=== PATIENT | male | born 1975 | race Caucasian/White ===

== ENCOUNTER 2018-03-10 05:23 | Emergency (ER) | payer MEDICAID ==
[~2018-03-10] VITALS: Ht 185.4 cm; Wt 70.5 kg
[~2018-03-10 05:23] MED LIST: ACET1TAB12 PO; CYCL-1 PO; CYCL-394 PO; IBUP-1572 PO; NO HOME MEDS; ONDA4TAB12 PO; VALA100027 PO
[2018-03-10 05:27] VITALS: BP 117/93
[2018-03-10 06:17] LABS: ALANINE AMINOTRANSFERASE 36 U/L (12-78); ALBUMIN 4.2 G/DL (3.4-5.0); ALBUMIN/GLOBULIN RATIO 1.1 (1.1-1.5); ALKALINE PHOSPHATASE 61 IU/L (46-116); ANION GAP 10 (8-16); ASPARTATE AMINO TRANSFERASE 31 U/L (10-37); BILIRUBIN,TOTAL 0.7 MG/DL (0.1-1.0); BLOOD UREA NITROGEN 20 MG/DL (7-18); BUN/CREATININE RATIO 24.4 (5.4-32.0); CALCIUM 9.6 MG/DL (8.5-10.1); CHLORIDE 100 MMOL/L (99-107); CREATININE 0.82 MG/DL (0.60-1.10); GLUCOSE 109 MG/DL (70-104); SODIUM 138 MMOL/L (135-145); TOTAL CARBON DIOXIDE 27.6 MMOL/L (24-32); TOTAL PROTEIN 7.9 G/DL (6.4-8.2); eGFR > 90 ML/MIN
[2018-03-10] MEDS ORDERED: ondansetron/PF 4mg/2ml inj IV ONE (06:20)
[2018-03-10] MEDS ORDERED: ketorolac trometh. 30mg/ml inj. IV ONE (06:20)
[2018-03-10 06:38] LABS: CLARITY,URINE CLEAR (Clear); COLOR,URINE YELLOW (Yellow); GLUCOSE, URINE NEGATIVE (Neg); KETONES,URINE NEGATIVE (Neg); LEUKOCYTE ESTERASE ,URINE NEGATIVE (Neg); NITRITES, URINE NEGATIVE (Neg); OCCULT BLOOD,URINE NEGATIVE (Neg); PROTEIN,URINE NEGATIVE (Neg); UROBILINOGEN,URINE 0.2 E.U/dL (0.2-1.0)
[2018-03-10 06:40] LABS: UA COLLECTION TYPE VOIDED
[2018-03-10 06:47] LABS: BASOPHILS # (AUTO) 0.1 X10'3 (0-0.2); BASOPHILS % (AUTO) 0.5 % (0-1); EOSINOPHILS # (AUTO) 0.2 X10'3 (0-0.9); EOSINOPHILS % (AUTO) 1.8 % (0-6); HEMATOCRIT 43.2 % (42.0-52.0); HEMOGLOBIN 14.5 g/dl (14.0-17.9); LYMPHOCYTES # (AUTO) 2.7 X10'3 (1.1-4.8); LYMPHOCYTES % (AUTO) 25.9 % (21-51); MEAN CORPUSCULAR HEMOGLOBIN 31.8 PG (27.0-31.0); MEAN CORPUSCULAR HGB CONC 33.5 % (33.0-36.5); MEAN CORPUSCULAR VOLUME 94.8 FL (78-98); MONOCYTES % (AUTO) 9.8 % (2-12); NEUTROPHILS # (AUTO) 6.6 X10'3 (1.8-7.7); PLATELET COUNT 449 X10'3 (140-440); RED BLOOD COUNT 4.56 X10'6 (4.70-6.10); RED CELL DISTRIBUTION WIDTH 13.4 % (11.5-14.5); WHITE BLOOD COUNT 10.6 X10'3 (4.5-11.0)
[2018-03-10] MEDS ORDERED: IBUP-1986 PO (06:55)
[2018-03-10] MEDS ORDERED: LIDOcaine 5% patch TP ONE (06:55)
[2018-03-10] MEDS ORDERED: orphenadrine citrate 60mg/2ml inj. IM ONE (06:55)
[2018-03-10] MEDS ORDERED: CYCL-1 PO (06:55)
[2018-03-10] MEDS ORDERED: LIDO700A32 TOP (06:55)
[2018-03-10] MEDS ORDERED: acetaminophen 325mg tablet PO ONE (06:55)
[2018-03-10] MEDS ORDERED: ACET-2615 PO (06:55)
== END 2018-03-10 07:19 | disposition home or self-care (01) ==
LOC: ER 05:24
DX: G89.29 Other chronic pain (principal); M54.5 Low back pain; N50.812 Left testicular pain; F12.90 Cannabis use, unspecified, uncomplicated; Z79.2 Long term (current) use of antibiotics; Z79.899 Other long term (current) drug therapy
CPT/HCPCS: 36415; 80053; 81003; 85025; 85610; 96374; 96375; 99283; J1885; J2405

== ENCOUNTER 2018-07-21 16:47 | Emergency (ER) | payer MEDICAID ==
[~2018-07-21] VITALS: Ht 185.4 cm; Wt 70.5 kg
[~2018-07-21 16:47] MED LIST changes: +IBUP-1986 PO; +LIDO700A32 TOP
[2018-07-21 17:30] VITALS: BP 105/64
[2018-07-21] MEDS ORDERED: SULF1TAB49 PO (17:57)
[2018-07-21] MEDS ORDERED: CEPH-572 PO (17:57)
[2018-07-21] MEDS ORDERED: mupirocin 2% ointment 22GM TP STA (17:57)
== END 2018-07-21 18:07 | disposition home or self-care (01) ==
LOC: ER 16:48
DX: L02.413 Cutaneous abscess of right upper limb (principal); G89.29 Other chronic pain; F12.90 Cannabis use, unspecified, uncomplicated; Z87.442 Personal history of urinary calculi; Z79.2 Long term (current) use of antibiotics; Z79.899 Other long term (current) drug therapy
CPT/HCPCS: 99283

== ENCOUNTER 2019-06-02 15:25 | Emergency (ER) | payer MEDICAID ==
[~2019-06-02] VITALS: Ht 185.4 cm; Wt 79.0 kg
[~2019-06-02 15:25] MED LIST changes: -VALA100027 PO; +VALA100031 PO
[2019-06-02] MEDS ORDERED: LIDOcaine 5% patch TP SCH (15:40)
[2019-06-02] MEDS ORDERED: cyclobenzaprine 10mg tablet PO ONE (15:40)
[2019-06-02] MEDS ORDERED: oxyCODONE/APAP 5-325mg tablet PO ONE (15:40)
[2019-06-02] MEDS ORDERED: ketorolac trometh. 30mg/ml inj. IM ONE (15:40)
[2019-06-02 15:41] VITALS: BP 126/74
[2019-06-02] MEDS ORDERED: HYDR-3965 PO (16:06)
== END 2019-06-02 16:33 | disposition home or self-care (01) ==
LOC: ER 15:25
DX: S39.012A Strain of muscle, fascia and tendon of lower back, initial encounter (principal); G89.29 Other chronic pain; F12.90 Cannabis use, unspecified, uncomplicated; Z79.899 Other long term (current) drug therapy; X50.1XXA Overexertion from prolonged static or awkward postures, initial encounter; Y93.89 Activity, other specified; Y92.89 Other specified places as the place of occurrence of the external cause; Y99.8 Other external cause status
CPT/HCPCS: 96372; 99284; J1885